=== PATIENT | female | born 1950 | race Two or more races ===

== ENCOUNTER 2019-08-10 20:01 | Inpatient (IN) | payer OTHER ==
[~2019-08-10] VITALS: Ht 165.1 cm; Wt 127.0 kg
[2019-08-10] MEDS ORDERED: LITIO (20:24)
[2019-08-10] MEDS ORDERED: [UNRECOGNIZED DRUG - OTHER] (20:25)
[2019-08-10] MEDS ORDERED: RESTORIL (20:27)
[2019-08-10] MEDS ORDERED: [UNRECOGNIZED DRUG - OTHER] (20:28)
[2019-08-11] MEDS ORDERED: ELIQUIS5 MG PO (08:40)
[2019-08-11] MEDS ORDERED: RESTORIL30 MG PO (08:40)
[2019-08-11] MEDS ORDERED: CLORAZEPATE D3.75 MG PO (08:41)
[2019-08-11] MEDS ORDERED: QUETIAPINE FUMA50 MG PO (08:41)
[2019-08-11] MEDS ORDERED: ESKALITH300 MG PO (08:41)
[2019-08-11] MEDS ORDERED: QUETIAPINE FUM200 MG PO (08:41)
[2019-08-18] MEDS ORDERED: TEMAZEPAM15 MG PO (14:15)
[2019-08-18] MEDS ORDERED: LOSARTAN POTASS50 MG PO (14:15)
== END 2019-08-18 18:39 | disposition home health service (06) | DRG 603 ==
LOC: ER 20:01 → SURH 22:59 → MEDJ 08-11 21:39
PROVIDERS: ADMIT Internal Medicine; ATTEND Internal Medicine
PROC: B44GZZZ Ultrasonography of Left Lower Extremity Arteries (ICD-10-PCS; principal; 2019-08-11)
DX: L03.116 Cellulitis of left lower limb (principal); F31.9 Bipolar disorder, unspecified; E66.9 Obesity, unspecified; Z68.34 Body mass index [BMI] 34.0-34.9, adult; I87.2 Venous insufficiency (chronic) (peripheral); I10 Essential (primary) hypertension

== ENCOUNTER 2019-10-02 09:26 | Emergency (ER) | payer OTHER ==
[~2019-10-02] VITALS: Ht 167.6 cm; Wt 95.3 kg
[~2019-10-02 09:26] MED LIST: CLORAZEPATE D3.75 MG PO; ELIQUIS5 MG PO; ESKALITH300 MG PO; LITIO; LOSARTAN POTASS50 MG PO; QUETIAPINE FUM200 MG PO; QUETIAPINE FUMA50 MG PO; RESTORIL; RESTORIL30 MG PO; TEMAZEPAM15 MG PO; [UNRECOGNIZED DRUG - OTHER]; [UNRECOGNIZED DRUG - OTHER]
== END 2019-10-02 17:28 | disposition home or self-care (01) ==
LOC: ER 09:26
DX: M79.662 Pain in left lower leg (principal); R60.0 Localized edema

== ENCOUNTER 2019-10-03 17:35 | Emergency (ER) | payer OTHER ==
[~2019-10-03] VITALS: Ht 167.6 cm; Wt 90.7 kg
== END 2019-10-04 15:41 | disposition left against medical advice (07) ==
LOC: ER 17:35
DX: R60.0 Localized edema (principal); Z20.828 Contact with and (suspected) exposure to other viral communicable diseases; F31.70 Bipolar disorder, currently in remission, most recent episode unspecified